=== PATIENT | female | born 1985 | race Caucasian/White ===

== ENCOUNTER 2016-08-03 13:59 | Outpatient (CLI) | payer OTHER ==
[~2016-08-03 13:59] MED LIST: DICLOXACILLIN500 MG PO; DOCUSATE SODIU100 MG PO; ENDOCET 5-3251 EACH PO; FAMOTIDINE20 MG PO; FERROUS SULFAT325 MG PO; IBUPROFEN800 MG PO; INDOCIN25 MG PO; OXYCODONE HCL5 MG PO; PERCOCET 5/31 TABLET PO; PRENA1 CHEW TA1.4 MG PO; PRENATAL 19 CH1 EAC1 PO; SOF-LAX100 MG PO; TYLENOL EXTRA500 MG PO
[2016-08-03 14:24] VITALS: BP 102/55
== END 2016-08-03 15:06 | disposition home or self-care (01) ==
LOC: LDRP-OP 13:59 → 2WEST 14:00 → LDRP-OP 11-28 16:27
DX: O36.8120 Decreased fetal movements, second trimester, not applicable or unspecified (principal); Z3A.27 27 weeks gestation of pregnancy
CPT/HCPCS: 59025; G0378

== ENCOUNTER 2016-10-30 07:53 | Inpatient (IN) | payer OTHER ==
[~2016-10-30] VITALS: Ht 157.5 cm; Wt 68.6 kg
[2016-10-30] VITALS (22 sets, daily range): BP systolic 91–122; BP diastolic 54–72
[2016-10-30 10:14] LABS: EOSINOPHIL (%) 4.7 % (0-5); EOSINOPHIL COUNT 0.5 K/uL (0-0.3); HEMATOCRIT 28.6 % (36.0-46.0); IMMATURE GRANULOCYTE (%) 1.7 % (0.0-0.7); IMMATURE GRANULOCYTE COUNT 0.2 K/uL; INSTRUMENT ABS NEUTROPHIL CT 6.8 K/uL; LYMPHOCYTE COUNT 1.9 K/uL (1.0-2.8); MCH 30.8 PG (29.0-34.0); MCHC 32.9 G/DL (30.0-36.0); MCV 93.8 FL (83-99); MEAN PLAT.VOLUME 9.5 uM^3 (9.5-12.4); MONOCYTE COUNT 0.8 K/uL (0-0.8); NEUTROPHIL (%) 66.9 % (45-76); NEUTROPHIL COUNT 6.8 K/uL (1.8-6.4); PLATELET COUNT 316 K/uL (156-360); RBC DIS.WIDTH-CV 11.9 % (11.8-14.6); RBC DIS.WIDTH-SD 40.9 % (39-53); RED BLOOD COUNT 3.05 M/uL (3.80-5.20); WHITE BLOOD COUNT 10.2 K/uL (4.1-10.2)
[2016-10-31] VITALS (9 sets, daily range): BP systolic 88–105; BP diastolic 49–61
[2016-10-31 05:27] LABS: EOSINOPHIL (%) 0 % (0-5); HEMATOCRIT 26.6 % (36.0-46.0); IMMATURE GRANULOCYTE (%) 0.7 % (0.0-0.7); IMMATURE GRANULOCYTE COUNT 0.2 K/uL; INSTRUMENT ABS NEUTROPHIL CT 21.4 K/uL; LYMPHOCYTE COUNT 1.3 K/uL (1.0-2.8); MCH 30.8 PG (29.0-34.0); MCHC 33.1 G/DL (30.0-36.0); MEAN PLAT.VOLUME 9.6 uM^3 (9.5-12.4); MONOCYTE (%) 5.7 % (3-12); MONOCYTE COUNT 1.4 K/uL (0-0.8); NEUTROPHIL (%) 88.2 % (45-76); NEUTROPHIL COUNT 21.4 K/uL (1.8-6.4); PLATELET COUNT 289 K/uL (156-360); RBC DIS.WIDTH-CV 11.9 % (11.8-14.6); RBC DIS.WIDTH-SD 40.5 % (39-53); RED BLOOD COUNT 2.86 M/uL (3.80-5.20); WHITE BLOOD COUNT 24.3 K/uL (4.1-10.2)
[2016-11-01 03:10] VITALS: BP 82/44
[2016-11-01 07:15] VITALS: BP 91/53
[2016-11-01 11:41] VITALS: BP 100/54
[2016-11-01 14:50] VITALS: BP 100/49
[2016-11-01 19:00] VITALS: BP 96/55
[2016-11-01 23:00] VITALS: BP 99/62
[2016-11-02] MEDS ORDERED: ASCORBIC ACID500 M3 PO (10:14)
[2016-11-02] MEDS ORDERED: DOCUSATE SODIU100 MG PO (10:14)
[2016-11-02] MEDS ORDERED: ENDOCET 5-3251 EACH PO (10:14)
[2016-11-02] MEDS ORDERED: IBUPROFEN800 MG PO (10:14)
[2016-11-02] MEDS ORDERED: FERROUS SULFAT325 MG PO (10:14)
== END 2016-11-02 15:18 | disposition home or self-care (01) | DRG 765 ==
LOC: LDRP-OP 07:53 → 2WEST 07:54 → LDRP-OP 19:52 → 2WEST 23:28 → LDRP-OP 11-28 20:09
PROVIDERS: Advanced Practice Midwife; Obstetrics & Gynecology
DX: O66.41 Failed attempted vaginal birth after previous cesarean delivery (principal); O63.9 Long labor, unspecified; O99.02 Anemia complicating childbirth; D62 Acute posthemorrhagic anemia; O48.0 Post-term pregnancy; O61.1 Failed instrumental induction of labor; O61.0 Failed medical induction of labor; Z3A.40 40 weeks gestation of pregnancy; Z37.0 Single live birth
CPT/HCPCS: 85025; 86850; 86900; 86901; C1726; C1755; J1200; J1885; J2274; J3010; J7120